=== PATIENT | male | born 1990 | race Caucasian/White ===

== ENCOUNTER 2023-07-23 04:01 | Emergency (ER) | payer OTHER ==
[~2023-07-23] VITALS: Ht 180.3 cm; Wt 75.0 kg
[2023-07-23] MEDS ORDERED: REMERON30 MG PO (04:22)
[2023-07-23 05:49] VITALS: BP 110/69
== END 2023-07-23 05:51 | disposition home or self-care (01) ==
LOC: ED 04:01
DX: R55 Syncope and collapse (principal)
CPT/HCPCS: 99283